=== PATIENT | female | born 1940 | race Caucasian/White ===

== ENCOUNTER → 2022-04-21 06:50 | Outpatient (CLI) | payer MEDICARE, SELFPAY ==
--- NOTE | 2022-04-21 | DI.MRI.S_ITS ---
PROCEDURE: MR HEAD/BRAIN WO CON INDICATIONS: Migraine with aura,Pelvic and perineal pain TECHNIQUE: Non-contrast axial T1 spin echo, axial T2 fast spin echo, sagittal and axial FLAIR, coronal T2 fast spin echo, axial gradient echo, axial diffusion and ADC through the brain. COMPARISON: None. FINDINGS: Image quality: Excellent. CSF spaces: Ventricles appear symmetric in size and shape. Basal cisterns are patent. No extra-axial fluid collections. Brain: No intracranial bleeds or mass effects. There is mild to moderate cerebral volume loss for age. There are moderate to severe pontine, periventricular and deep white matter chronic small vessel ischemic changes. Brainstem appears normal. Diffusion-weighted images show no acute ischemic insults. No chronic ischemic insults. Normal intravascular flow voids are present. Skull and face: Calvarial bone marrow is normal in signal. Orbits are normal. Sinuses: Trace fluid noted in the dependent portions of the maxillary sinuses bilaterally. The mastoids are clear. IMPRESSION: 1. No acute intracranial disease process. 2. No abnormal intracranial mass or mass effect. 3. No intracranial hemorrhage. 4. Cksq-gs-vkacguae diffuse volume loss. 5. Moderate to severe periventricular and subcortical white matter chronic microvascular ischemic change. Dictated by: Melba Henley MD, PhD on 04/21/2022 at 11:14 Approved by: Melba Henley MD, PhD on 04/21/2022 at 11:19
--- NOTE | 2022-04-21 | DI.MRI.S_ITS ---
PROCEDURE: MR PELVIS WO CON INDICATIONS: Migraine with aura,Pelvic and perineal pain TECHNIQUE: Noncontrast coronal and axial T1 spin echo and STIR through the bony pelvis. COMPARISON: [facility] Outside Film, CR, XR PELVIS WITH LATERAL HIP LEFT, 03/31/2017, 15:36. FINDINGS: Image quality: Excellent. Bones: Patient is status post left total hip arthroplasty with significant susceptibility artifacts limits evaluation of left hip. Moderate right hip joint osteoarthritic changes are seen with joint space narrowing and subchondral sclerosis. There is no marrow edema seen in bony pelvis. No fracture or dislocation. No evidence of avascular necrosis of femoral head. No gross suspicious bony lesion. No ankylosis or edema is seen in bilateral sacroiliac joints. Tendons: The gluteus medius and minimus tendinosis at their insertion on bilateral greater trochanters are seen, without associated muscle atrophy. The nearby proximal iliotibial band also appears intact. The iliopsoas tendon appears intact, without adjacent bursal fluid collections or evidence for impingement syndrome. The origin of the hamstring tendon is intact at the ischial tuberosity, as well as the associated sacrotuberous ligament. The straight and reflected heads of the rectus femoris muscle origin appear intact, as well as the conjoint tendon. Subtle signal abnormality and contour irregularity involving superior anterior right hip labrum is seen concerning for subtle superior anterior labral tear. Soft tissues: Visualized muscles demonstrate normal bulk and internal signal. No joint effusions. No free pelvic fluid. Bladder wall thickness is normal. Genitourinary structures and bowel loops appear normal where visualized. IMPRESSION: 1. Prior left total hip arthroplasty. Osteoarthritic changes in right hip joint. No pelvic or hip fracture. No dislocation. No evidence of avascular necrosis. No suspicious intraosseous lesion. 2. No signal abnormality is seen in bilateral sacroiliac joints. 3. Mild bilateral distal gluteus medius and minimus tendinosis. No other muscle or tendon signal abnormality. 4. Suggestion of subtle superior anterior right hip labral tear. Dictated by: Lion Mendiola M.D. on 04/21/2022 at 8:51 Approved by: Lion Mendiola M.D. on 04/21/2022 at 10:57
== END ==
DX: G43.109 Migraine with aura, not intractable, without status migrainosus (principal); R10.2 Pelvic and perineal pain; M76.02 Gluteal tendinitis, left hip; M76.01 Gluteal tendinitis, right hip
CPT/HCPCS: 70551; 72195

== ENCOUNTER 2022-04-21 08:19 | Emergency (ER) | payer MEDICARE, SELFPAY ==
[2022-04-21] VITALS (14 sets, daily range): BP systolic 118–152; BP diastolic 66–91; PULSE 66–84; RESP 17–20; TEMP 37.1; O2SAT 98–100; BMI 20.5
--- NOTE | 2022-04-21 08:58 | ED_ITS ---
HPI - Extremity Injury (Lower) General Chief Complaint: Extremity Injury, Lower Stated Complaint: Pain in right lower back/leg Time Seen by Provider: 04/21/22 08:58 Source: patient and family Mode of arrival: Ambulatory Limitations: no limitations History of Present Illness HPI Narrative: This is a 81-year-old female with significant history of aortic dissection with repair on December 19, 2019 to, ocular migraines, ulcerative colitis in remission for the past 6 years, hypertension, carotid dissection on aspirin 81 mg, prior shingles who presents after having outpatient MRI of her brain and pelvis today. Patient has had pain in her right SI joint wrapping around and through her right buttock and sometimes down her knee towards her manuel she states she has some chronic tingling in her toes but no new numbness or tingling. She does not have any increasing pain with movement and she states ambulating seems to be helpful. She states being seated or lying for long periods makes it worse. She had pain on the left side before several weeks ago but states that has resolved. She denies any difficulty with ambulation. Patient has been taking Percocet 5/325 mg her last dose was at 4:00 a.m. she took 5 tablets yesterday over 24 hour. She denies fevers, chills, no cold, cough or congestion, no chest pain or shortness of breath, no abdominal pain, she has had nausea intermittently but always had a good appetite, no vomiting, no diarrhea. She has had some constipation which she relates to the narcotic pain medication. She denies any dysuria, urgency or frequency and no bowel or bladder incontinence. Patient takes aspirin, mesalamine, metoprolol, Colace, MiraLax and Percocet daily. She is allergic to gabapentin and Valium. She had a graft placed in [facility] December 19, followed by a thoracentesis for pleural effusion, she was found to have carotid dissection [facility] recommended aspirin 81 mg. She was seen at [place] [facility] in the last 1-[address] angio showing no dissection or change and will 0 carotids to the thigh. Patient has seen orthopedic surgery, she has been seen at [facility] by [facility], she received a Medrol Dosepak which helped with her pain for short period of time. And return to the ER in [place] yesterday had labs including ESR, CRP CK, lactate imaging which were reassuring. She was prescribed Dilaudid and nortriptyline a yesterday but has not initiated. Review of Systems Review of Systems ROS Unobtainable: All systems reviewed & are unremarkable except as noted in HPI and below Patient History Social History Smoking Status: Never smoker Smoking Status: Never smoker alcohol intake frequency: 0-2 drinks per day Alcohol type: wine Substance Use Type: does not use Exam Narrative Exam Narrative: GEN: well nourished, well appearing female, alert and oriented x 3, patient appears to be in mild distress. HEENT: Atraumatic, pupils are equal round reactive to light, extraocular movements are intact, nares are clear. Throat is clear without any exudates, erythema, tonsillar enlargement or uvular deviation HEART: Regular rate and rhythm without murmur, clicks, rubs. No carotid bruits, pulses are equal in upper and lower extremities LUNGS:Lungs clear to auscultation, no wheezes, rales, crackles, chest moves symmetrically ABD:bowel sounds normal, soft, non-tender, no guarding, rebound, rigidity, no masses noted, no hepatosplenomegaly, no bruit or pulsatile mass. :No CVA tenderness BACK: No cervical, thoracic or lumbar vertebral point tenderness. Patient has mildly range of motion. Patient's gait is [antalgic/normal]. Rectal exam is deferred. Muscle strength is 5/5 in lower extremities, , no increase in pain on straight leg raise, DTRs are 2/4 and lower extremities. Cap refill less than 2 seconds bilateral lower extremities. Sensation is intact in the lower extremities. MSCL: Non-tender, no muscle atrophy, muscles strength 5/5 upper and lower extremities, full range of motion, normal gait NEURO:CN 2-12 intact, sensation normal, reflexes 2/4 upper and lower extremities SKIN: No rash, erythema or other skin changes. Initial Vital Signs Initial Vital Signs: Vital Signs Pulse Rate 82 04/21/22 08:27 Respiratory Rate 20 04/21/22 08:27 Pulse Oximetry 100 04/21/22 08:27 Course Orders Ordered: Discontinued Medications Ketorolac Tromethamine (Ketorolac 30 Mg/Ml Vial) 15 mg IV NOW ONE Stop: 04/21/22 09:32 Last Admin: 04/21/22 10:00 Dose: 15 mg Documented by: ALEJO Ondansetron HCl (Ondansetron 4 Mg/2 Ml Inj) 4 mg IV NOW ONE Stop: 04/21/22 09:32 Last Admin: 04/21/22 10:00 Dose: 4 mg Documented by: ALEJO Reevaluation(s) Reevaluation #1: Patient states Toradol was helpful for some time but pain started to reoccur. Reviewed her labs and findings today. I also spoke with their on-call physician by speaker phone with them in the room at patient and family request. Reviewed all other findings including MRI today. Vital Signs Vital signs: Vital Signs - 8 hr 04/21/22 11:00 04/21/22 11:30 04/21/22 11:55 Pulse Rate 66 68 68 Respiratory Rate 17 20 Blood Pressure 135/77 143/80 H 143/80 H Pulse Oximetry 99 98 98 MDM - Extremity Injury (Lower) Lab Data Result diagrams: 04/21/22 09:54 04/21/22 09:54 Labs: Lab Results 04/21/22 04/21/22 04/21/22 Range/Units 09:54 09:54 09:54 WBC 5.6 (4.5-11.0) X10^3/uL RBC 4.75 (4.0-5.2) X10^6/uL Hgb 13.6 (12.0-16.0) g/dL Hct 39.7 (36-46) % MCV 83.5 (80-100) fL MCH 28.7 (26-34) PG MCHC 34.4 (30-36) % RDW 16.9 H (11.6-14.8) % Plt Count 237 (150-400) X10^3/uL Neut % (Auto) 67.8 (50-75) % Lymph % (Auto) 17.4 L (25-40) % [place] % (Auto) 11.6 (3-14) % Eos % (Auto) 2.7 (2-4) % Baso % (Auto) 0.5 (0-2) % Neut # (Auto) 3800 (0490-0043) /uL Lymph # (Auto) 1000 L (4160-6409) /uL [place] # (Auto) 600 (0-900) /uL Eos # (Auto) 100 (0-450) /uL Baso # (Auto) 0 (0-100) /uL ESR 12 (0-20) MM/HR Sodium 129 L (137-145) mmol/L Potassium 4.2 (3.4-5.1) mmol/L Chloride 94 L (98-107) mmol/L Carbon Dioxide 32 (22-32) mmol/L BUN 15 (7-17) mg/dL Creatinine 0.74 (0.52-1.04) mg/dL Estimated GFR > 60 (>60) mL/min BUN/Creatinine Ratio 20.3 (6-22) Glucose 96 (80-110) mg/dL Lactate 0.8 (0.7-2.1) mmol/L Uric Acid 2.4 L (2.5-6.2) mg/dL Calcium 8.9 (8.4-10.2) mg/dL Total Bilirubin 0.5 (0.2-1.3) mg/dL AST 34 (14-36) IU/L ALT 25 (<35) IU/L Alkaline Phosphatase 67 (38-126) U/L C-Reactive Protein 1.5 H (<1.0) mg/dL Total Protein 7.2 (6.3-8.2) g/dL Albumin 4.2 (3.5-5.0) g/dL Globulin 3.0 (1.7-4.1) g/dL Albumin/Globulin Ratio 1.4 (1.0-2.8) Lipase 173 (23-300) U/L Imaging Data MRI brain: Radiologist's Impression: [address] [address] Magnetic Resonance Report Signed Patient: Christal Wade MR#: [id number] : 1940 Acct:[id number] Age/Sex: 81 / F Date of Service: 04/21/22 Loc: MRI Accession Number: [id number] ?? Procedure: MR head/brain wo con Ordering Provider: Miscellaneous,Doctor PROCEDURE:? MR HEAD/BRAIN WO CON ? INDICATIONS:? Migraine with aura,Pelvic and perineal pain ? TECHNIQUE:? Non-contrast axial T1 spin echo, axial T2 fast spin echo, sagittal and axial FLAIR, coronal T2 fast spin echo, axial gradient echo, axial diffusion and ADC through the brain.? ? COMPARISON:? None. ? FINDINGS:? Image quality:? Excellent.? ? CSF spaces:? Ventricles appear symmetric in size and shape.? Basal cisterns are patent.? No extra-axial fluid collections.? ? Brain:? No intracranial bleeds or mass effects.? There is mild to moderate cerebral volume loss for age.? There are moderate to severe pontine, periventricular and deep white matter chronic small vessel ischemic changes.? Brainstem appears normal.? Diffusion-weighted images show no acute ischemic insults.? No chronic ischemic insults.? Normal intravascular flow voids are present.? ? Skull and face:? Calvarial bone marrow is normal in signal.? Orbits are normal.? ? Sinuses:? Trace fluid noted in the dependent portions of the maxillary sinuses bilaterally.? The mastoids are clear.? ? IMPRESSION:? ? 1. No acute intracranial disease process. ? 2. No abnormal intracranial mass or mass effect. ? 3. No intracranial hemorrhage. ? 4. Zpsl-jt-blvhqtej diffuse volume loss. ? 5. Moderate to severe periventricular and subcortical white matter chronic microvascular ischemic change.? ? ? Dictated by: Melba Henley MD, PhD on 04/21/2022 at 11:14 ? ? Approved by: Melba Henley MD, PhD on 04/21/2022 at 11:19?? Pelvic MRI: Radiologist's Impression: [address]?[place] [address] Magnetic Resonance Report Signed Patient: Christal Wade MR#: [id number] : 1940 Acct:[id number] Age/Sex: 81 / F Date of Service: 04/21/22 Loc: MRI Accession Number: [id number] ?? Procedure: MR pelvis wo con Ordering Provider: Doctor RA Solitario PROCEDURE:? MR PELVIS WO CON ? INDICATIONS:? Migraine with aura,Pelvic and perineal pain ? TECHNIQUE:? Noncontrast coronal and axial T1 spin echo and STIR through the bony pelvis.? ? COMPARISON:? [facility] Outside Film, CR, XR PELVIS WITH LATERAL HIP LEFT, 03/31/2017, 15:36. ? FINDINGS:? Image quality:? Excellent.? ? Bones:? Patient is status post left total hip arthroplasty with significant susceptibility artifacts limits evaluation of left hip.? Moderate right hip joint osteoarthritic changes are seen with joint space narrowing and subchondral sclerosis.? There is no marrow edema seen in bony pelvis.? No fracture or dislocation.? No evidence of avascular necrosis of femoral head.? No gross suspicious bony lesion.? No ankylosis or edema is seen in bilateral sacroiliac joints. ? Tendons:? The gluteus medius and minimus tendinosis at their insertion on bilateral greater trochanters are seen, without associated muscle atrophy.? The nearby proximal iliotibial band also appears intact.? The iliopsoas tendon appears intact, without adjacent bursal fluid collections or evidence for impingement syndrome.? The origin of the hamstring tendon is intact at the ischial tuberosity, as well as the associated sacrotuberous ligament.? The straight and reflected heads of the rectus femoris muscle origin appear intact, as well as the conjoint tendon.? Subtle signal abnormality and contour irregularity involving superior anterior right hip labrum is seen concerning for subtle superior anterior labral tear. ? Soft tissues:? Visualized muscles demonstrate normal bulk and internal signal.? No joint effusions.? No free pelvic fluid.? Bladder wall thickness is normal.? Genitourinary structures and bowel loops appear normal where visualized.? ? IMPRESSION:? 1. Prior left total hip arthroplasty.? Osteoarthritic changes in right hip joint.? No pelvic or hip fracture.? No dislocation.? No evidence of avascular necrosis.? No suspicious intraosseous lesion. 2. No signal abnormality is seen in bilateral sacroiliac joints. 3.? Mild bilateral distal gluteus medius and minimus tendinosis.? No other muscle or tendon signal abnormality. 4. Suggestion of subtle superior anterior right hip labral tear.? ? ? Dictated by: Lion Mendiola M.D. on 04/21/2022 at 8:51 ? ? Approved by: Lion Mendiola M.D. on 04/21/2022 at 10:57?? [facility] Narrative Medical decision making narrative: This is a 81-year-old female with multiple medical issues who has had right SI joint pain coming down her buttock towards her knee. She has had multiple workups at outside facilities, she does history significant for dissection and had a graft placed in November of 2021. Patient does not have any exam findings to suggest that she has a vascular cause of her symptoms today, pain is worsened with sitting and lying still improved with movement, patient has seen multiple providers hand specialty providers including vascular, Neurology and Orthopedic surgery and has follow-up set up with rheumatology. She had an elevated ESR/CRP rate reported prior but is normal today. Patient does have a history of ulcerative colitis so sacroiliitis or rheumatological cause is possible and would encourage him to keep the rheumatology follow-up. She had outpatient MRI of the brain and pelvis today, brain shows no acute changes, pelvis does show a right hip labral tear and some tendinosis of bilaterally which may be related to her pain although would suspect walking would not make this improved. Patient was recommended to follow-up with orthopedic surgery and primary care, she has been prescribed Dilaudid and nortriptyline which she has not started and has available to her. Discharge Plan Departure Patient Disposition: Home Clinical Impression: Labral tear of right hip joint Qualifiers: Encounter type: initial encounter Qualified Code(s): S73.191A - Other sprain of right hip, initial encounter Instructions: Hip Labral Tears Activity Restrictions/Additional Instructions: Your sodium level today is low at 129, but your labs are otherwise reassuring. Your MRI brain results do not show any acute changes. The MRI of your pelvis does show a subtle superior right hip labral tear as well as some bilateral distal gluteus medius and minimus tendinosis. There are no changes to the sacroiliac joints. It may be helpful to use crutches or a walker if you find walking uncomfortable. You may find the nortriptyline helpful and can initiate this. If you take the hydromorphone, you can still take Tylenol up to a 1000 mg every 6 hours as needed. I would recommend taking the pain medication that you have been prescribed, this medication is quite powerful so I would not recommend taking with percocet. This medication can make you sleepy do not drive, perform hazardous activities or make any major decisions while taking it. This medication will make you constipated please take a stool softener once to twice daily until stools are soft and regular. Please return for rapidly worsening symptoms, passing out, new chest pain, shortness of breath, abdominal pain, persistent vomiting, black or bloody stools, changes in color in the leg such as pallor, cyanosis or other discoloration, new weakness, loss of sensation or other new or concerning symptoms. Referrals: Raissa Calles MD [Primary Care Provider] -
[2022-04-21] MEDS: ONDANSETRON 4 MG/2 ML INJ IV (10:00)
[2022-04-21] MEDS: KETOROLAC 30 MG/ML VIAL 15 MG IV (10:00)
[2022-04-21 10:01] LABS: Add Manual Diff / Slide Review NO; Basophils Absolute Auto 0 /uL (0-100); Basophils Percent Auto 0.5 % (0-2); Eosinophils Absolute Auto 100 /uL (0-450); Eosinophils Percent Auto 2.7 % (2-4); Hematocrit 39.7 % (36-46); Hemoglobin 13.6 g/dL (12.0-16.0); Lymphocytes Absolute Auto 1000 /uL (1100-4500); Lymphocytes Percent Auto 17.4 % (25-40); Mean Corpuscular HGB Conc 34.4 % (30-36); Mean Corpuscular Hemoglobin 28.7 PG (26-34); Mean Corpuscular Volume 83.5 fL (80-100); Monocytes Absolute Auto 600 /uL (0-900); Monocytes Percent Auto 11.6 % (3-14); Neutrophils Absolute Auto 3800 /uL (1500-7000); Neutrophils Percent Auto 67.8 % (50-75); Platelet Count 237 X10^3/uL (150-400); Red Blood Cell Count 4.75 X10^6/uL (4.0-5.2); Red Cell Distribution Width 16.9 % (11.6-14.8); White Blood Cell Count 5.6 X10^3/uL (4.5-11.0)
[2022-04-21 10:18] LABS: Erythrocyte Sedimentation Rate 12 MM/HR (0-20)
[2022-04-21 10:19] LABS: Lactate (Lactic Acid) 0.8 mmol/L (0.7-2.1)
[2022-04-21 10:21] LABS: Alanine Aminotransferase 25 IU/L (<35); Albumin 4.2 g/dL (3.5-5.0); Albumin Globulin Ratio 1.4 (1.0-2.8); Alkaline Phosphatase 67 U/L (38-126); Aspartate Aminotransferase 34 IU/L (14-36); BUN Creatinine Ratio 20.3 (6-22); Bilirubin Total 0.5 mg/dL (0.2-1.3); Blood Urea Nitrogen 15 mg/dL (7-17); C-Reactive Protein Quant 1.5 mg/dL (<1.0); Calcium 8.9 mg/dL (8.4-10.2); Carbon Dioxide 32 mmol/L (22-32); Chloride 94 mmol/L (98-107); Estimated Glomerular Filt Rate > 60 mL/min (>60); Glucose 96 mg/dL (80-110); HEMOLYSIS < 15 (0-50); Lipase 173 U/L (23-300); Potassium 4.2 mmol/L (3.4-5.1); Sodium 129 mmol/L (137-145); Total Protein 7.2 g/dL (6.3-8.2); Uric Acid 2.4 mg/dL (2.5-6.2)
== END 2022-04-21 11:38 | disposition home or self-care (01) ==
PROVIDERS: Emergency Provider Emergency Medicine; PCP Internal Medicine
DX: S73.191A Other sprain of right hip, initial encounter (principal); R10.2 Pelvic and perineal pain; G43.109 Migraine with aura, not intractable, without status migrainosus; M76.02 Gluteal tendinitis, left hip; M76.01 Gluteal tendinitis, right hip
CPT/HCPCS: 36415; 70551; 72195; 80053; 83605; 83690; 84550; 85025; 85651; 86140; 96374; 96375; 99284; J1885; J2405

== ENCOUNTER → 2022-05-04 13:01 | Outpatient (CLI) | payer MEDICARE, SELFPAY ==
--- NOTE | 2022-05-04 | DI.CT.S_ITS ---
PROCEDURE: CT ANGIO HEAD AND NECK INDICATIONS: Stricture of artery TECHNIQUE: Pre-contrast 4.5 mm thick sections acquired from the foramen magnum to the vertex. After the administration of intravenous contrast, 1 mm thick sections acquired from the aortic arch through the [place] of [place]. Post-contrast 4.5 mm thick sections then re-acquired from the foramen magnum to the vertex. 3-dimensional mujtkka-zzpweevmq-gcxsvnudkc (MIP) and/or volume rendering reformats were acquired of the central intracranial vasculature and neck separately. For radiation dose reduction, the following was used: automated exposure control, adjustment of mA and/or kV according to patient size. COMPARISON: [facility], MR, MR HEAD/BRAIN WO CON, 04/21/2022, 7:37. FINDINGS: Image quality: Excellent. BRAIN: CSF spaces: Mild ventriculomegaly which could be due to central volume loss versus normal pressure hydrocephalus. Basal cisterns are patent. No extra-axial fluid collections. Brain: No midline shift. No intracranial bleeds or masses. There is mild to moderate, diffuse cerebral volume loss. There are moderate periventricular and subcortical white matter chronic microvascular ischemic changes. [place]-white matter interface appears intact. Skull and face: Calvarium and facial bones appear intact, without suspicious lesions. Orbits appear normal. Sinuses: Sinuses and mastoids are clear. HEAD CT ANGIOGRAPHY: Anterior circulation: Intracranial internal carotid arteries are normal in size and flow. The flow within the paired anterior cerebral arteries is normal and symmetric. The flow within the middle cerebral arteries is normal and symmetric. The anterior communicating artery is seen. No aneurysms are seen. Posterior circulation: Visualized portions of the vertebral arteries demonstrate normal caliber, and join to form a normal appearing basilar artery. Flow within the posterior cerebral arteries is normal and symmetric. No aneurysms are seen. Dural sinuses demonstrate normal postcontrast enhancement. NECK CT ANGIOGRAPHY: Carotid system: The great vessels demonstrate a conventional anatomy as they arise from the aortic arch. There is a large penetrating ulcer in the ascending thoracic aorta at the junction with the aortic arch The origins of the common carotid arteries appear patent. There is a dissection of the right common carotid artery extending from the origin to near the bifurcation. Atherosclerotic plaque noted in the origin of the right internal carotid artery which causes less than 50% narrowing of the vessel. Left internal carotid artery is fully patent. Posterior circulation: The origins of the vertebral arteries both appear widely patent. The more superior extracranial portions of both vertebral arteries also demonstrate normal courses and calibers. They join to form a normal appearing basilar artery. Soft tissues: Visualized neck soft tissues demonstrate no suspicious abnormalities. Bones: No suspicious bony lesions. Spine degenerative disc disease and facet arthropathy. Visualized cervical spine appears normally aligned. IMPRESSION: 1. No acute intracranial disease process. 2. Mild ventriculomegaly which could be due to central volume loss versus normal pressure hydrocephalus. Recommend correlation with clinical data. 3. Right common carotid artery dissection. 4. 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 5. No large vessel occlusion or hemodynamically significant vascular stenosis. Any quantitative measurements of stenosis were performed using NASCET criteria. Dictated by: Melba Henely MD, PhD on 05/04/2022 at 16:46 Approved by: Melba Henley MD, PhD on 05/04/2022 at 17:03
== END ==
PROVIDERS: PCP Internal Medicine; Referring Provider Surgery Vascular Surgery; Visit Provider Surgery Vascular Surgery
DX: G93.89 Other specified disorders of brain (principal); I71.2 Thoracic aortic aneurysm, without rupture; I77.71 Dissection of carotid artery; I77.1 Stricture of artery
CPT/HCPCS: 70496; 70498